=== PATIENT | male | born 1990 | race Caucasian/White ===

== ENCOUNTER 2017-03-12 08:42 | Emergency (ER) | payer MEDICAID ==
[~2017-03-12 08:42] MED LIST: AMILORIDE HCL5 MG PO; BACITRACIN28.4 G2 AP; BACTRIM; BACTRIM DS TAB1 EAC1 PO; BP PILL PO; BYSTOLIC5 MG PO; CALCIUM500 MG; CARVEDILOL25 MG; CELEXA20 M2 PO; CIPRO250 M2 PO; CIPRO250 MG PO; CIPROFLOXACIN250 M1 PO; CLONIDINE HCL0.2 MG PO; COLACE100 MG PO; COREG6.25 MG PO; DETROL LA4 M1 PO; DITROPAN XL10 M3 PO; DITROPAN XL5 MG; FEOSOL325 M1 PO; IRON1 TA1; IRON325 ( 65 ) PO; LISINOPRIL-HCT1 EAC3 PO; MACROBID 100 M100 MG; MIRALAX17 GM PO; NORCO 5/325 TAB1 TAB PO; NORCO 5/3251 TAB PO; STOOL SOFTENER PO; TOPROL XL25 M1 PO; TOVIAZ8 M1 PO; VICTOZA
[2017-03-12] MEDS ORDERED: HIPREX1 GM PO (08:52)
[2017-03-12] MEDS ORDERED: SILVADENE20 G1 TP (10:40)
[2017-04-24] MEDS ORDERED: CLEOCIN HCL300 M1 PO (09:37)
[2017-04-24] MEDS ORDERED: PROBIOTIC1 EAC8 PO (09:37)
[2017-05-22] MEDS ORDERED: ASPIRIN325 M3 PO (10:29)
[2017-06-12] MEDS ORDERED: MYRBETRIQ25 M1 PO (09:15)
== END 2017-03-12 10:54 ==
LOC: EDMED 08:42
DX: L89.319 Pressure ulcer of right buttock, unspecified stage (principal); Z88.0 Allergy status to penicillin; Z91.040 Latex allergy status; Z88.8 Allergy status to other drugs, medicaments and biological substances

== ENCOUNTER 2017-03-22 19:44 | Inpatient (IN) | payer MEDICAID ==
[~2017-03-22 19:44] MED LIST changes: +HIPREX1 GM PO; +SILVADENE20 G1 TP
[2017-03-22] MEDS ORDERED: ACID CONTROL150 M2 PO (19:59)
[2017-03-22 20:24] LABS: BASO % 0.2 % (0-2); BASO ABSOLUTE COUNT 0.1 tho/cmm (0.0-0.2); EOS % 0.1 % (0-7); HCT-HEMATOCRIT 31.5 % (36.0-53.5); HGB-HEMOGLOBIN 10.3 gm/dl (13.5-17.0); IMMATURE GRANULOCYTES ABSOLUTE 0.06 tho/cmm (0-0.03); IMMATURE GRANULOCYTES PERCENT 0.3 % (0-0.3); LYMPH % 6.7 % (20-45); LYMPH ABSOLUTE COUNT 1.4 tho/cmm (0.8-4.5); MCH (MEAN CORPUSCULAR HGB) 26.2 pg (28.0-32.0); MCHC MEAN CORPUSCULAR HGB CONC 32.7 % (32.0-36.0); MCV (MEAN CELL VOLUME) 80.2 fl (82.0-96.0); MONO % 4.9 % (0-12); NEUTROPHIL ABSOLUTE COUNT 18.6 tho/cmm (1.6-8.0); NEUTROPHIL-AUTOMATED 18.6 tho/cmm (1.6-8.0); NEUTROPHILS % 87.8 % (40-80); PLATELET COUNT 399 tho/cmm (150-450); RED BLOOD COUNT 3.93 mil/cmm (4.40-5.70); RED CELL DISTRIBUTION WIDTH 14.8 % (12.4-16.4); WHITE BLOOD COUNT 21.2 tho/cmm (4.0-10.0)
[2017-03-22 20:36] LABS: ANION GAP 18 mmol/L (0-20); BLOOD UREA NITROGEN 21 mg/dl (6-24); CALCIUM 8.6 mg/dl (8.5-10.5); CARBON DIOXIDE-VENOUS 21 mmol/L (22-32); CHLORIDE 98 mmol/l (96-110); CREATININE 1.17 mg/dl (0.60-1.30); GLUCOSE 200 mg/dL (70-110); POTASSIUM 3.7 mmol/L (3.7-5.1); SODIUM 133 mmol/L (135-145); eGFR VALUE FOR BLACK >90 mL/Min
[2017-03-22 20:52] LABS: PROCALCITONIN 1.24 ng/ml (0.05-0.09)
[2017-03-22 20:59] LABS: URINE APPEARANCE CLOUDY; URINE BILIRUBIN NEGATIVE (NEG); URINE BLOOD LARGE (NEG); URINE COLOR YELLOW; URINE GLUCOSE (UA) NEGATIVE (NEG); URINE KETONE MODERATE (NEG); URINE LEUKOCYTE ESTERASE POSITIVE (NEG); URINE NITRITE NEGATIVE (NEG); URINE PROTEIN MODERATE (NEG)
[2017-03-22 21:06] LABS: URINE EPITHELIAL CELLS 0-1 /[HPF] (0-10); URINE RBC 35-45 /[HPF] (0-5)
[2017-03-22 21:07] LABS: URINE BACTERIA 2+
[2017-03-22 23:53] LABS: INR 1.3 INR (0.9-1.1); PROTHROMBIN TIME 15.7 SECONDS (9.0-13.6)
[2017-03-23 05:22] LABS: BASO % 0.2 % (0-2); EOS % 0.2 % (0-7); HCT-HEMATOCRIT 25.4 % (36.0-53.5); IMMATURE GRANULOCYTES ABSOLUTE 0.03 tho/cmm (0-0.03); IMMATURE GRANULOCYTES PERCENT 0.2 % (0-0.3); LYMPH % 7.8 % (20-45); LYMPH ABSOLUTE COUNT 1.1 tho/cmm (0.8-4.5); MCH (MEAN CORPUSCULAR HGB) 25.6 pg (28.0-32.0); MCHC MEAN CORPUSCULAR HGB CONC 31.5 % (32.0-36.0); MCV (MEAN CELL VOLUME) 81.2 fl (82.0-96.0); MEAN PLATELET VOLUME 8.7 cmc (9.4-12.4); MONO % 10.8 % (0-12); MONOCYTE ABSOLUTE COUNT 1.5 tho/cmm (0.0-1.2); NEUTROPHIL ABSOLUTE COUNT 11.2 tho/cmm (1.6-8.0); NEUTROPHIL-AUTOMATED 11.2 tho/cmm (1.6-8.0); NEUTROPHILS % 80.8 % (40-80); PLATELET COUNT 282 tho/cmm (150-450); RED BLOOD COUNT 3.13 mil/cmm (4.40-5.70); RED CELL DISTRIBUTION WIDTH 15.1 % (12.4-16.4); WHITE BLOOD COUNT 13.9 tho/cmm (4.0-10.0)
[2017-03-23 05:43] LABS: ALB/GLOB RATIO 0.5 (0.8-2.0); ALBUMIN 2.1 g/dl (3.5-5.0); ALKALINE PHOSPHATASE 77 U/L (33-138); ANION GAP 12 mmol/L (0-20); AST/SGOT 7 U/L (10-40); BILIRUBIN,TOTAL 0.3 mg/dl (0.0-1.5); BLOOD UREA NITROGEN 14 mg/dl (6-24); CALCIUM 7.7 mg/dl (8.5-10.5); CARBON DIOXIDE-VENOUS 23 mmol/L (22-32); CHLORIDE 110 mmol/l (96-110); CREATININE 0.92 mg/dl (0.60-1.30); GLUCOSE 116 mg/dL (70-110); SODIUM 141 mmol/L (135-145); eGFR VALUE FOR BLACK >90 mL/Min
[2017-03-23 05:50] LABS: ALT/SGPT 9 U/L (12-78)
[2017-03-23 09:34] LABS: BASO % 0.2 % (0-2); EOS % 0.2 % (0-7); HCT-HEMATOCRIT 25.1 % (36.0-53.5); IMMATURE GRANULOCYTES ABSOLUTE 0.03 tho/cmm (0-0.03); IMMATURE GRANULOCYTES PERCENT 0.2 % (0-0.3); LYMPH % 6.3 % (20-45); LYMPH ABSOLUTE COUNT 0.8 tho/cmm (0.8-4.5); MCHC MEAN CORPUSCULAR HGB CONC 31.9 % (32.0-36.0); MCV (MEAN CELL VOLUME) 81.5 fl (82.0-96.0); MEAN PLATELET VOLUME 8.7 cmc (9.4-12.4); MONO % 9.4 % (0-12); MONOCYTE ABSOLUTE COUNT 1.2 tho/cmm (0.0-1.2); NEUTROPHIL ABSOLUTE COUNT 10.8 tho/cmm (1.6-8.0); NEUTROPHIL-AUTOMATED 10.8 tho/cmm (1.6-8.0); NEUTROPHILS % 83.7 % (40-80); PLATELET COUNT 308 tho/cmm (150-450); RED BLOOD COUNT 3.08 mil/cmm (4.40-5.70); WHITE BLOOD COUNT 12.8 tho/cmm (4.0-10.0)
[2017-03-23 14:26] LABS: IRON 13 ug/dl (49-181); IRON BINDING CAPACITY 123 ug/dl (250-450)
[2017-03-23 15:53] LABS: HCT-HEMATOCRIT 26.9 % (36.0-53.5); HGB-HEMOGLOBIN 8.3 gm/dl (13.5-17.0); MCV (MEAN CELL VOLUME) 82.8 fl (82.0-96.0); RED CELL DISTRIBUTION WIDTH 14.9 % (12.4-16.4)
[2017-03-24 06:11] LABS: BASO % 0.2 % (0-2); EOS % 0.3 % (0-7); HGB-HEMOGLOBIN 7.4 gm/dl (13.5-17.0); IMMATURE GRANULOCYTES ABSOLUTE 0.03 tho/cmm (0-0.03); IMMATURE GRANULOCYTES PERCENT 0.2 % (0-0.3); LYMPH ABSOLUTE COUNT 1.3 tho/cmm (0.8-4.5); MCH (MEAN CORPUSCULAR HGB) 25.5 pg (28.0-32.0); MCHC MEAN CORPUSCULAR HGB CONC 31.5 % (32.0-36.0); MEAN PLATELET VOLUME 8.9 cmc (9.4-12.4); MONO % 9.4 % (0-12); MONOCYTE ABSOLUTE COUNT 1.3 tho/cmm (0.0-1.2); NEUTROPHIL ABSOLUTE COUNT 11.2 tho/cmm (1.6-8.0); NEUTROPHIL-AUTOMATED 11.2 tho/cmm (1.6-8.0); NEUTROPHILS % 80.9 % (40-80); PLATELET COUNT 287 tho/cmm (150-450); RED CELL DISTRIBUTION WIDTH 15.4 % (12.4-16.4); WHITE BLOOD COUNT 13.9 tho/cmm (4.0-10.0)
[2017-03-24 06:14] LABS: HCT-HEMATOCRIT 23.5 % (36.0-53.5)
[2017-03-24 06:19] LABS: ANION GAP 12 mmol/L (0-20); BLOOD UREA NITROGEN 4 mg/dl (6-24); CALCIUM 7.8 mg/dl (8.5-10.5); CARBON DIOXIDE-VENOUS 22 mmol/L (22-32); CHLORIDE 110 mmol/l (96-110); GLUCOSE 96 mg/dL (70-110); POTASSIUM 3.6 mmol/L (3.7-5.1); SODIUM 140 mmol/L (135-145); eGFR VALUE FOR BLACK >90 mL/Min
[2017-03-24 06:58] LABS: PROCALCITONIN 7.23 ng/ml (0.05-0.09)
[2017-03-25 05:57] LABS: BASO % 0.2 % (0-2); EOS % 1.4 % (0-7); EOSINOPHIL ABSOLUTE COUNT 0.2 tho/cmm (0.0-0.7); HGB-HEMOGLOBIN 6.9 gm/dl (13.5-17.0); IMMATURE GRANULOCYTES ABSOLUTE 0.02 tho/cmm (0-0.03); IMMATURE GRANULOCYTES PERCENT 0.2 % (0-0.3); LYMPH % 11.7 % (20-45); LYMPH ABSOLUTE COUNT 1.4 tho/cmm (0.8-4.5); MCH (MEAN CORPUSCULAR HGB) 26.6 pg (28.0-32.0); MCV (MEAN CELL VOLUME) 82.2 fl (82.0-96.0); MEAN PLATELET VOLUME 8.7 cmc (9.4-12.4); MONOCYTE ABSOLUTE COUNT 1.1 tho/cmm (0.0-1.2); NEUTROPHIL ABSOLUTE COUNT 9.3 tho/cmm (1.6-8.0); NEUTROPHIL-AUTOMATED 9.3 tho/cmm (1.6-8.0); NEUTROPHILS % 77.5 % (40-80); PLATELET COUNT 243 tho/cmm (150-450); RED BLOOD COUNT 2.59 mil/cmm (4.40-5.70); RED CELL DISTRIBUTION WIDTH 15.8 % (12.4-16.4)
[2017-03-25 06:01] LABS: HCT-HEMATOCRIT 21.3 % (36.0-53.5); MCHC MEAN CORPUSCULAR HGB CONC 32.4 % (32.0-36.0)
[2017-03-25 06:04] LABS: BLOOD UREA NITROGEN 6 mg/dl (6-24); CARBON DIOXIDE-VENOUS 19 mmol/L (22-32); CHLORIDE 117 mmol/l (96-110); CREATININE 0.46 mg/dl (0.60-1.30); GLUCOSE 75 mg/dL (70-110); SODIUM 144 mmol/L (135-145); eGFR VALUE FOR BLACK >90 mL/Min
[2017-03-25 06:06] LABS: ANION GAP 11 mmol/L (0-20)
[2017-03-25 06:09] LABS: CALCIUM 5.9 mg/dl (8.5-10.5); POTASSIUM 2.9 mmol/L (3.7-5.1)
[2017-03-25 06:43] LABS: PROCALCITONIN 3.38 ng/ml (0.05-0.09)
--- NOTE | 2017-03-25 13:30 | NUR ---
PT SISTER CALLED THIS AM TO GIVE UPDATE BUT SHE DID NOT ANSWER. LEFT MESSAGE BUT NO CALL BACK YET. CALLED PT MOM ANA LAURA AND GAVE HER UPDATE RE: TEMP, TACHYCARDIA, LOW HGB, AND TX TO ICU.
[2017-03-25 14:23] LABS: HCT-HEMATOCRIT 38.6 % (36.0-53.5); HGB-HEMOGLOBIN 12.6 gm/dl (13.5-17.0); MCV (MEAN CELL VOLUME) 82.3 fl (82.0-96.0); RED CELL DISTRIBUTION WIDTH 15.5 % (12.4-16.4)
[2017-03-25 18:50] LABS: URINE BILIRUBIN NEGATIVE (NEG); URINE BLOOD SMALL (NEG); URINE GLUCOSE (UA) NEGATIVE (NEG); URINE KETONE NEGATIVE (NEG); URINE LEUKOCYTE ESTERASE POSITIVE (NEG); URINE NITRITE NEGATIVE (NEG); URINE PROTEIN SMALL (NEG)
[2017-03-25 18:53] LABS: URINE APPEARANCE CLOUDY; URINE COLOR YELLOW
[2017-03-25 18:54] LABS: URINE WBC 20-40 /[HPF] (0-5)
[2017-03-25 18:55] LABS: URINE EPITHELIAL CELLS 0 /[HPF] (0-10); URINE RBC 0 /[HPF] (0-5)
[2017-03-26 04:26] LABS: BASO % 0.3 % (0-2); BASO ABSOLUTE COUNT 0.1 tho/cmm (0.0-0.2); EOS % 2.4 % (0-7); EOSINOPHIL ABSOLUTE COUNT 0.4 tho/cmm (0.0-0.7); HCT-HEMATOCRIT 37.1 % (36.0-53.5); HGB-HEMOGLOBIN 12.4 gm/dl (13.5-17.0); IMMATURE GRANULOCYTES ABSOLUTE 0.07 tho/cmm (0-0.03); IMMATURE GRANULOCYTES PERCENT 0.4 % (0-0.3); LYMPH % 12.2 % (20-45); LYMPH ABSOLUTE COUNT 2.2 tho/cmm (0.8-4.5); MCHC MEAN CORPUSCULAR HGB CONC 33.4 % (32.0-36.0); MCV (MEAN CELL VOLUME) 81.5 fl (82.0-96.0); MEAN PLATELET VOLUME 9.3 cmc (9.4-12.4); MONO % 9.5 % (0-12); MONOCYTE ABSOLUTE COUNT 1.7 tho/cmm (0.0-1.2); NEUTROPHIL ABSOLUTE COUNT 13.8 tho/cmm (1.6-8.0); NEUTROPHIL-AUTOMATED 13.8 tho/cmm (1.6-8.0); NEUTROPHILS % 75.2 % (40-80); PLATELET COUNT 346 tho/cmm (150-450); RED CELL DISTRIBUTION WIDTH 15.9 % (12.4-16.4)
[2017-03-26 04:41] LABS: ALB/GLOB RATIO 0.4 (0.8-2.0); ALBUMIN 1.9 g/dl (3.5-5.0); ALKALINE PHOSPHATASE 90 U/L (33-138); ALT/SGPT 10 U/L (12-78); ANION GAP 13 mmol/L (0-20); AST/SGOT 10 U/L (10-40); BILIRUBIN,TOTAL 0.8 mg/dl (0.0-1.5); BLOOD UREA NITROGEN 14 mg/dl (6-24); CARBON DIOXIDE-VENOUS 24 mmol/L (22-32); CHLORIDE 104 mmol/l (96-110); GLUCOSE 94 mg/dL (70-110); POTASSIUM 4.1 mmol/L (3.7-5.1); SODIUM 137 mmol/L (135-145)
[2017-03-26 04:44] LABS: CREATININE 0.91 mg/dl (0.60-1.30); eGFR VALUE FOR BLACK >90 mL/Min
[2017-03-26 05:15] LABS: MCH (MEAN CORPUSCULAR HGB) 27.2 pg (28.0-32.0); RED BLOOD COUNT 4.55 mil/cmm (4.40-5.70); WHITE BLOOD COUNT 18.3 tho/cmm (4.0-10.0)
[2017-03-26 05:26] LABS: PROCALCITONIN 3.04 ng/ml (0.05-0.09)
--- NOTE | 2017-03-26 18:11 | NUR ---
03/26/[address] @ [address] MAGANA WAS NOTIFIED ABOUT CELLULITIS/SEPTIC RIGHT HIP, ID AND IR WERE CONSULTED BY DR. BRANDON WILKINSON AFTER HE WAS CONTACTED BY ME ABOUT RIGHT SEPTIC HIP AND LEFT PERINEPHRICABCESS. IR TO DRAIN ABCESS TOMORROW AT 1300. ORTHO CONSULTED AND IR TO POSSIBLE DRAIN AND ASPIRATE CONTENTS FROM RIGHT HIP TOMORROW. MARGE PETTY RN
[2017-03-27 04:08] LABS: INR 1.3 INR (0.9-1.1); PROTHROMBIN TIME 14.7 SECONDS (9.0-13.6)
[2017-03-27 04:11] LABS: BASO % 0.6 % (0-2); BASO ABSOLUTE COUNT 0.1 tho/cmm (0.0-0.2); EOS % 5.1 % (0-7); EOSINOPHIL ABSOLUTE COUNT 0.6 tho/cmm (0.0-0.7); HCT-HEMATOCRIT 35.5 % (36.0-53.5); HGB-HEMOGLOBIN 11.6 gm/dl (13.5-17.0); IMMATURE GRANULOCYTES ABSOLUTE 0.04 tho/cmm (0-0.03); IMMATURE GRANULOCYTES PERCENT 0.4 % (0-0.3); LYMPH % 17.9 % (20-45); LYMPH ABSOLUTE COUNT 1.9 tho/cmm (0.8-4.5); MCHC MEAN CORPUSCULAR HGB CONC 32.7 % (32.0-36.0); MCV (MEAN CELL VOLUME) 82.8 fl (82.0-96.0); MEAN PLATELET VOLUME 9.1 cmc (9.4-12.4); MONO % 6.8 % (0-12); MONOCYTE ABSOLUTE COUNT 0.7 tho/cmm (0.0-1.2); NEUTROPHIL ABSOLUTE COUNT 7.5 tho/cmm (1.6-8.0); NEUTROPHIL-AUTOMATED 7.5 tho/cmm (1.6-8.0); NEUTROPHILS % 69.2 % (40-80); PLATELET COUNT 310 tho/cmm (150-450); RED BLOOD COUNT 4.29 mil/cmm (4.40-5.70); RED CELL DISTRIBUTION WIDTH 16.5 % (12.4-16.4); WHITE BLOOD COUNT 10.8 tho/cmm (4.0-10.0)
[2017-03-27 04:18] LABS: ANION GAP 11 mmol/L (0-20); BLOOD UREA NITROGEN 14 mg/dl (6-24); CALCIUM 7.6 mg/dl (8.5-10.5); CARBON DIOXIDE-VENOUS 25 mmol/L (22-32); CHLORIDE 104 mmol/l (96-110); CREATININE 0.88 mg/dl (0.60-1.30); GLUCOSE 79 mg/dL (70-110); POTASSIUM 4.1 mmol/L (3.7-5.1); SODIUM 136 mmol/L (135-145); eGFR VALUE FOR BLACK >90 mL/Min
[2017-03-27 06:12] LABS: PROCALCITONIN 1.82 ng/ml (0.05-0.09)
[2017-03-27 18:32] LABS: BODY FLUID MACROPHAGES 6 %; BODY FLUID NEUTROPHILS 94 %
[2017-03-27 18:46] LABS: BODY FLUID APPEARANCE CLOUDY (CLEAR); BODY FLUID COLOR RED (COLORLESS); BODY FLUID VOLUME 24 ml
[2017-03-28 04:00] LABS: BASO % 0.4 % (0-2); EOSINOPHIL ABSOLUTE COUNT 0.4 tho/cmm (0.0-0.7); HCT-HEMATOCRIT 34.9 % (36.0-53.5); HGB-HEMOGLOBIN 11.4 gm/dl (13.5-17.0); IMMATURE GRANULOCYTES ABSOLUTE 0.04 tho/cmm (0-0.03); IMMATURE GRANULOCYTES PERCENT 0.5 % (0-0.3); LYMPH % 17.7 % (20-45); LYMPH ABSOLUTE COUNT 1.4 tho/cmm (0.8-4.5); MCH (MEAN CORPUSCULAR HGB) 27.1 pg (28.0-32.0); MCHC MEAN CORPUSCULAR HGB CONC 32.7 % (32.0-36.0); MCV (MEAN CELL VOLUME) 83.1 fl (82.0-96.0); MEAN PLATELET VOLUME 8.7 cmc (9.4-12.4); MONO % 8.8 % (0-12); MONOCYTE ABSOLUTE COUNT 0.7 tho/cmm (0.0-1.2); NEUTROPHIL ABSOLUTE COUNT 5.4 tho/cmm (1.6-8.0); NEUTROPHIL-AUTOMATED 5.4 tho/cmm (1.6-8.0); NEUTROPHILS % 67.6 % (40-80); PLATELET COUNT 318 tho/cmm (150-450); RED CELL DISTRIBUTION WIDTH 16.7 % (12.4-16.4)
[2017-03-28 04:20] LABS: ANION GAP 11 mmol/L (0-20); BLOOD UREA NITROGEN 16 mg/dl (6-24); C-REACTIVE PROTEIN 14.8 mg/dl (0-0.9); CALCIUM 7.7 mg/dl (8.5-10.5); CARBON DIOXIDE-VENOUS 26 mmol/L (22-32); CHLORIDE 104 mmol/l (96-110); CREATININE 1.02 mg/dl (0.60-1.30); GLUCOSE 100 mg/dL (70-110); POTASSIUM 4.2 mmol/L (3.7-5.1); SODIUM 137 mmol/L (135-145); eGFR VALUE FOR BLACK >90 mL/Min
[2017-03-28 05:12] LABS: PROCALCITONIN 0.99 ng/ml (0.05-0.09)
[2017-03-29 05:41] LABS: BASO % 0.6 % (0-2); EOS % 5.5 % (0-7); EOSINOPHIL ABSOLUTE COUNT 0.4 tho/cmm (0.0-0.7); HCT-HEMATOCRIT 36.5 % (36.0-53.5); HGB-HEMOGLOBIN 11.8 gm/dl (13.5-17.0); IMMATURE GRANULOCYTES ABSOLUTE 0.06 tho/cmm (0-0.03); IMMATURE GRANULOCYTES PERCENT 0.9 % (0-0.3); LYMPH % 22.1 % (20-45); LYMPH ABSOLUTE COUNT 1.5 tho/cmm (0.8-4.5); MCH (MEAN CORPUSCULAR HGB) 27.4 pg (28.0-32.0); MCHC MEAN CORPUSCULAR HGB CONC 32.3 % (32.0-36.0); MCV (MEAN CELL VOLUME) 84.7 fl (82.0-96.0); MEAN PLATELET VOLUME 8.7 cmc (9.4-12.4); MONOCYTE ABSOLUTE COUNT 0.5 tho/cmm (0.0-1.2); NEUTROPHIL ABSOLUTE COUNT 4.2 tho/cmm (1.6-8.0); NEUTROPHIL-AUTOMATED 4.2 tho/cmm (1.6-8.0); NEUTROPHILS % 62.9 % (40-80); PLATELET COUNT 385 tho/cmm (150-450); RED BLOOD COUNT 4.31 mil/cmm (4.40-5.70); RED CELL DISTRIBUTION WIDTH 16.8 % (12.4-16.4); WHITE BLOOD COUNT 6.7 tho/cmm (4.0-10.0)
[2017-03-29 05:48] LABS: ALBUMIN 2.2 g/dl (3.5-5.0); ANION GAP 11 mmol/L (0-20); BLOOD UREA NITROGEN 19 mg/dl (6-24); C-REACTIVE PROTEIN 9.2 mg/dl (0-0.9); CALCIUM 8.1 mg/dl (8.5-10.5); CARBON DIOXIDE-VENOUS 25 mmol/L (22-32); CHLORIDE 108 mmol/l (96-110); CREATININE 1.21 mg/dl (0.60-1.30); GLUCOSE 94 mg/dL (70-110); POTASSIUM 4.8 mmol/L (3.7-5.1); SODIUM 139 mmol/L (135-145); eGFR VALUE FOR BLACK >90 mL/Min
[2017-03-29 06:32] LABS: PROCALCITONIN 0.42 ng/ml (0.05-0.09)
[2017-03-30 04:49] LABS: BASO % 0.8 % (0-2); BASO ABSOLUTE COUNT 0.1 tho/cmm (0.0-0.2); EOS % 6.6 % (0-7); EOSINOPHIL ABSOLUTE COUNT 0.5 tho/cmm (0.0-0.7); HCT-HEMATOCRIT 40.2 % (36.0-53.5); HGB-HEMOGLOBIN 12.9 gm/dl (13.5-17.0); IMMATURE GRANULOCYTES ABSOLUTE 0.12 tho/cmm (0-0.03); IMMATURE GRANULOCYTES PERCENT 1.7 % (0-0.3); LYMPH % 21.3 % (20-45); LYMPH ABSOLUTE COUNT 1.5 tho/cmm (0.8-4.5); MCH (MEAN CORPUSCULAR HGB) 27.4 pg (28.0-32.0); MCHC MEAN CORPUSCULAR HGB CONC 32.1 % (32.0-36.0); MCV (MEAN CELL VOLUME) 85.4 fl (82.0-96.0); MEAN PLATELET VOLUME 8.6 cmc (9.4-12.4); MONO % 9.4 % (0-12); MONOCYTE ABSOLUTE COUNT 0.7 tho/cmm (0.0-1.2); NEUTROPHIL ABSOLUTE COUNT 4.4 tho/cmm (1.6-8.0); NEUTROPHIL-AUTOMATED 4.4 tho/cmm (1.6-8.0); NEUTROPHILS % 60.2 % (40-80); PLATELET COUNT 435 tho/cmm (150-450); RED BLOOD COUNT 4.71 mil/cmm (4.40-5.70); WHITE BLOOD COUNT 7.2 tho/cmm (4.0-10.0)
[2017-03-30 05:01] LABS: ALBUMIN 2.3 g/dl (3.5-5.0); ANION GAP 11 mmol/L (0-20); BLOOD UREA NITROGEN 23 mg/dl (6-24); C-REACTIVE PROTEIN 5.4 mg/dl (0-0.9); CALCIUM 8.5 mg/dl (8.5-10.5); CARBON DIOXIDE-VENOUS 25 mmol/L (22-32); CHLORIDE 106 mmol/l (96-110); CREATININE 1.04 mg/dl (0.60-1.30); GLUCOSE 88 mg/dL (70-110); PHOSPHOROUS 3.1 mg/dl (2.5-4.9); POTASSIUM 5.1 mmol/L (3.7-5.1); SODIUM 137 mmol/L (135-145); eGFR VALUE FOR BLACK >90 mL/Min
[2017-03-30 05:26] LABS: PROCALCITONIN 0.31 ng/ml (0.05-0.09)
[2017-03-31 05:44] LABS: BASO % 0.9 % (0-2); BASO ABSOLUTE COUNT 0.1 tho/cmm (0.0-0.2); EOS % 5.7 % (0-7); EOSINOPHIL ABSOLUTE COUNT 0.4 tho/cmm (0.0-0.7); HCT-HEMATOCRIT 42.2 % (36.0-53.5); HGB-HEMOGLOBIN 12.9 gm/dl (13.5-17.0); LYMPH % 27.4 % (20-45); LYMPH ABSOLUTE COUNT 1.8 tho/cmm (0.8-4.5); MCH (MEAN CORPUSCULAR HGB) 26.6 pg (28.0-32.0); MCHC MEAN CORPUSCULAR HGB CONC 30.6 % (32.0-36.0); MEAN PLATELET VOLUME 8.4 cmc (9.4-12.4); MONOCYTE ABSOLUTE COUNT 0.5 tho/cmm (0.0-1.2); NEUTROPHIL ABSOLUTE COUNT 3.9 tho/cmm (1.6-8.0); NEUTROPHIL-AUTOMATED 3.9 tho/cmm (1.6-8.0); PLATELET COUNT 535 tho/cmm (150-450); RED BLOOD COUNT 4.85 mil/cmm (4.40-5.70); RED CELL DISTRIBUTION WIDTH 17.6 % (12.4-16.4); WHITE BLOOD COUNT 6.6 tho/cmm (4.0-10.0)
[2017-03-31 05:54] LABS: ALBUMIN 2.3 g/dl (3.5-5.0); ANION GAP 10 mmol/L (0-20); BLOOD UREA NITROGEN 22 mg/dl (6-24); C-REACTIVE PROTEIN 2.9 mg/dl (0-0.9); CALCIUM 8.7 mg/dl (8.5-10.5); CARBON DIOXIDE-VENOUS 27 mmol/L (22-32); CHLORIDE 105 mmol/l (96-110); CREATININE 0.96 mg/dl (0.60-1.30); GLUCOSE 91 mg/dL (70-110); PHOSPHOROUS 3.8 mg/dl (2.5-4.9); POTASSIUM 4.9 mmol/L (3.7-5.1); SODIUM 137 mmol/L (135-145); eGFR VALUE FOR BLACK >90 mL/Min
[2017-03-31 06:34] LABS: PROCALCITONIN 0.17 ng/ml (0.05-0.09)
[2017-04-01 04:48] LABS: ALBUMIN 2.4 g/dl (3.5-5.0); ANION GAP 11 mmol/L (0-20); BLOOD UREA NITROGEN 23 mg/dl (6-24); CALCIUM 8.5 mg/dl (8.5-10.5); CARBON DIOXIDE-VENOUS 25 mmol/L (22-32); CHLORIDE 106 mmol/l (96-110); CREATININE 1.07 mg/dl (0.60-1.30); GLUCOSE 87 mg/dL (70-110); PHOSPHOROUS 3.7 mg/dl (2.5-4.9); POTASSIUM 4.9 mmol/L (3.7-5.1); SODIUM 137 mmol/L (135-145); eGFR VALUE FOR BLACK >90 mL/Min
[2017-04-01 04:51] LABS: BASO % 1.3 % (0-2); BASO ABSOLUTE COUNT 0.1 tho/cmm (0.0-0.2); EOS % 4.6 % (0-7); EOSINOPHIL ABSOLUTE COUNT 0.3 tho/cmm (0.0-0.7); HCT-HEMATOCRIT 41.1 % (36.0-53.5); HGB-HEMOGLOBIN 12.9 gm/dl (13.5-17.0); IMMATURE GRANULOCYTES ABSOLUTE 0.15 tho/cmm (0-0.03); IMMATURE GRANULOCYTES PERCENT 2.2 % (0-0.3); LYMPH % 29.9 % (20-45); LYMPH ABSOLUTE COUNT 2.1 tho/cmm (0.8-4.5); MCHC MEAN CORPUSCULAR HGB CONC 31.4 % (32.0-36.0); MCV (MEAN CELL VOLUME) 86.2 fl (82.0-96.0); MONO % 6.5 % (0-12); MONOCYTE ABSOLUTE COUNT 0.5 tho/cmm (0.0-1.2); NEUTROPHIL ABSOLUTE COUNT 3.8 tho/cmm (1.6-8.0); NEUTROPHIL-AUTOMATED 3.8 tho/cmm (1.6-8.0); NEUTROPHILS % 55.5 % (40-80); PLATELET COUNT 482 tho/cmm (150-450); RED BLOOD COUNT 4.77 mil/cmm (4.40-5.70); RED CELL DISTRIBUTION WIDTH 17.1 % (12.4-16.4); WHITE BLOOD COUNT 6.9 tho/cmm (4.0-10.0)
[2017-04-01 05:51] LABS: PROCALCITONIN 0.15 ng/ml (0.05-0.09)
[2017-04-03 05:36] LABS: BASO % 1.6 % (0-2); BASO ABSOLUTE COUNT 0.1 tho/cmm (0.0-0.2); EOSINOPHIL ABSOLUTE COUNT 0.2 tho/cmm (0.0-0.7); HCT-HEMATOCRIT 39.3 % (36.0-53.5); HGB-HEMOGLOBIN 12.6 gm/dl (13.5-17.0); IMMATURE GRANULOCYTES ABSOLUTE 0.05 tho/cmm (0-0.03); LYMPH % 38.9 % (20-45); LYMPH ABSOLUTE COUNT 1.9 tho/cmm (0.8-4.5); MCH (MEAN CORPUSCULAR HGB) 27.5 pg (28.0-32.0); MCHC MEAN CORPUSCULAR HGB CONC 32.1 % (32.0-36.0); MCV (MEAN CELL VOLUME) 85.8 fl (82.0-96.0); MONO % 7.4 % (0-12); MONOCYTE ABSOLUTE COUNT 0.4 tho/cmm (0.0-1.2); NEUTROPHIL ABSOLUTE COUNT 2.4 tho/cmm (1.6-8.0); NEUTROPHIL-AUTOMATED 2.4 tho/cmm (1.6-8.0); NEUTROPHILS % 47.1 % (40-80); PLATELET COUNT 408 tho/cmm (150-450); RED BLOOD COUNT 4.58 mil/cmm (4.40-5.70); RED CELL DISTRIBUTION WIDTH 17.5 % (12.4-16.4)
[2017-04-03 05:49] LABS: ANION GAP 12 mmol/L (0-20); BLOOD UREA NITROGEN 29 mg/dl (6-24); C-REACTIVE PROTEIN 1.3 mg/dl (0-0.9); CALCIUM 8.9 mg/dl (8.5-10.5); CARBON DIOXIDE-VENOUS 29 mmol/L (22-32); CHLORIDE 101 mmol/l (96-110); CREATININE 1.01 mg/dl (0.60-1.30); GLUCOSE 74 mg/dL (70-110); SODIUM 137 mmol/L (135-145); eGFR VALUE FOR BLACK >90 mL/Min
[2017-04-03 06:19] LABS: PROCALCITONIN 0.14 ng/ml (0.05-0.09)
[2017-04-04 05:48] LABS: BASO ABSOLUTE COUNT 0.1 tho/cmm (0.0-0.2); EOS % 4.3 % (0-7); EOSINOPHIL ABSOLUTE COUNT 0.2 tho/cmm (0.0-0.7); HCT-HEMATOCRIT 39.5 % (36.0-53.5); HGB-HEMOGLOBIN 12.5 gm/dl (13.5-17.0); IMMATURE GRANULOCYTES ABSOLUTE 0.04 tho/cmm (0-0.03); IMMATURE GRANULOCYTES PERCENT 0.8 % (0-0.3); LYMPH % 26.4 % (20-45); LYMPH ABSOLUTE COUNT 1.4 tho/cmm (0.8-4.5); MCH (MEAN CORPUSCULAR HGB) 27.5 pg (28.0-32.0); MCHC MEAN CORPUSCULAR HGB CONC 31.6 % (32.0-36.0); MCV (MEAN CELL VOLUME) 86.8 fl (82.0-96.0); MEAN PLATELET VOLUME 7.9 cmc (9.4-12.4); MONOCYTE ABSOLUTE COUNT 0.4 tho/cmm (0.0-1.2); NEUTROPHIL ABSOLUTE COUNT 3.1 tho/cmm (1.6-8.0); NEUTROPHIL-AUTOMATED 3.1 tho/cmm (1.6-8.0); NEUTROPHILS % 59.5 % (40-80); PLATELET COUNT 348 tho/cmm (150-450); RED BLOOD COUNT 4.55 mil/cmm (4.40-5.70); RED CELL DISTRIBUTION WIDTH 17.3 % (12.4-16.4); WHITE BLOOD COUNT 5.1 tho/cmm (4.0-10.0)
[2017-04-04] MEDS ORDERED: FEOSOL325 M1 PO (14:18)
[2017-04-04] MEDS ORDERED: PROTONIX40 M2 PO (14:19)
[2017-04-04] MEDS ORDERED: LEVAQUIN500 M1 PO (14:20)
[2017-04-24] MEDS ORDERED: PROBIOTIC1 EAC8 PO (09:37)
[2017-04-24] MEDS ORDERED: CLEOCIN HCL300 M1 PO (09:37)
[2017-05-22] MEDS ORDERED: ASPIRIN325 M3 PO (10:29)
[2017-06-12] MEDS ORDERED: MYRBETRIQ25 M1 PO (09:15)
== END 2017-04-04 15:45 | disposition home health service (06) | DRG 871 ==
LOC: EDMED 19:44 → EMR2 22:44 → PCUA 23:15 → CCU 03-25 14:16 → PCUA 03-28 22:15
PROVIDERS: Emergency Medicine; Family Medicine; Internal Medicine; Internal Medicine Infectious Disease; Radiology Diagnostic Radiology; ADMIT Family Medicine
PROC: 02HV33Z Insertion of Infusion Device into Superior Vena Cava, Percutaneous Approach (ICD-10-PCS; principal; 2017-03-23)
DX: A41.9 Sepsis, unspecified organism (principal); N15.1 Renal and perinephric abscess; G82.20 Paraplegia, unspecified; L89.159 Pressure ulcer of sacral region, unspecified stage; T83.511A Infection and inflammatory reaction due to indwelling urethral catheter, initial encounter; N39.0 Urinary tract infection, site not specified; R33.9 Retention of urine, unspecified; K21.9 Gastro-esophageal reflux disease without esophagitis; D64.9 Anemia, unspecified; D50.9 Iron deficiency anemia, unspecified; N31.9 Neuromuscular dysfunction of bladder, unspecified; F41.9 Anxiety disorder, unspecified; Q05.9 Spina bifida, unspecified
CPT/HCPCS: C1729; C1751; C9113; J0692; J1580; J1644; J1956; J2405; J3480; J7030; J7050; P9016; Q9967